=== PATIENT | male | born 1980 | race African-American/Black ===

== ENCOUNTER 2017-03-12 11:38 | Emergency (ER) | payer BC ==
[~2017-03-12] VITALS: Ht 172.7 cm; Wt 68.0 kg
[2017-03-12 12:00] VITALS: BP 159/92
[2017-03-12 12:25] LABS: BASOPHILS % (AUTO) 1.2 % (0.0-2.0); EOSINOPHILS % (AUTO) 1.1 % (0.0-3.0); LYMPHOCYTES % (AUTO) 46.3 % (20.0-45.0); MEAN CORPUSCULAR HEMOGLOBIN 28.9 PG (27.0-31.0); MEAN CORPUSCULAR HGB CONC 33.3 G/DL (32.0-36.0); MEAN CORPUSCULAR VOLUME 87 FL (80-99); MEAN PLATELET VOLUME 12.3 FL (6.5-10.1); MONOCYTES % (AUTO) 7.6 % (1.0-10.0); NEUTROPHILS % (AUTO) 43.8 % (45.0-75.0); PLATELET COUNT 150 K/UL (150-450); RED BLOOD COUNT 5.71 M/UL (4.70-6.10); RED CELL DISTRIBUTION WIDTH 11.9 % (11.6-14.8); WHITE BLOOD COUNT 6.9 K/UL (4.8-10.8)
[2017-03-12 12:26] LABS: APPEARANCE,URINE CLEAR; KETONES,URINE NEGATIVE (NEGATIVE); LEUKOCYTE ESTERASE ,URINE NEGATIVE (NEGATIVE); NITRITE,URINE NEGATIVE (NEGATIVE); PH,URINE 7 (4.5-8.0); PROTEIN,URINE NEGATIVE (NEGATIVE); UROBILINOGEN,URINE NORMAL MG/DL (0.0-1.0)
[2017-03-12 12:38] LABS: ALANINE AMINOTRANSFERASE 45 U/L (3-41); ALBUMIN/GLOBULIN RATIO 1.4 (1.0-2.7); ANION GAP 13 (5-15); ASPARTATE AMINO TRANSFERASE 25 U/L (5-40); CALCIUM 9.7 mg/dL (8.6-10.2); CARBON DIOXIDE 28 mEQ/L (20-30); CHLORIDE 99 mEQ/L (98-107); CREATININE 1.3 mg/dL (0.7-1.2); GLOMERULAR FILTRATION RATE > 60 mL/min (>60); HEMOLYSIS 5; LIPASE 30 U/L (< 60); POTASSIUM 3.8 mEQ/L (3.4-4.9); SODIUM 140 mEQ/L (135-145); TOTAL PROTEIN 8.2 g/dL (6.6-8.7)
[2017-03-12 12:51] LABS: BILIRUBIN,DIRECT 0.2 mg/dL (0.1-0.3)
[2017-03-12 13:59] VITALS: BP 123/99
--- NOTE | 2017-03-12 15:13 | Emergency Room Report ---
History of Present Illness General Chief Complaint: Abdominal Pain Source: Patient Present Illness HPI This patient complained of abdominal pain for the past 2 days. He also states has a history of severe constipation. He states he has not a bowel movement in the past 2 days. He denies nausea or vomiting. Denies fever chills. Denies dysuria or hematuria. He has no other complaints. Allergies: Coded Allergies: AMOXICILLIN (Verified Allergy, Unknown, 03/12/17) Uncoded Allergies: OKRA (Allergy, Unknown, 03/12/17) Patient History Past Medical History: none, see triage record, renal disease Social History: Denies: alcohol use, drug use, smoking Reviewed Nursing Documentation: PMH: Agreed, PSxH: Agreed Nursing Documentation-PMH Past Medical History: No Stated History Review of Systems All Other Systems: negative except mentioned in HPI Physical Exam Vital Signs Date Time Temp Pulse Resp B/P Pulse Ox O2 Delivery O2 Flow Rate FiO2 03/12/17 11:52 98.1 78 16 134/83 99 Room Air Sp02 EP Interpretation: reviewed, normal General Appearance: no apparent distress, alert, GCS 15, non-toxic Head: normocephalic, atraumatic Eyes: bilateral eye PERRL, bilateral eye normal inspection ENT: hearing grossly normal, normal pharynx, no angioedema, normal voice Neck: full range of motion, supple/symm/no masses Respiratory: chest non-tender, lungs clear, normal breath sounds, speaking full sentences Cardiovascular #1: regular rate, rhythm, no edema Gastrointestinal: normal bowel sounds, soft, non-distended, no guarding, no rebound, tenderness - TTP LLQ Rectal: deferred Musculoskeletal: back normal, gait/station normal, normal range of motion, non- tender Neurologic: alert, oriented x3, responsive, motor strength/tone normal, sensory intact, speech normal Psychiatric: judgement/insight normal, memory normal, mood/affect normal, no suicidal/homicidal ideation Skin: normal color, no rash, warm/dry, well hydrated Medical Decision Making Diagnostic Impression: Primary Impression: Constipation Additional Impression: Renal insufficiency, mild ER Course This patient presents with abdominal pain and constipation. He was tender to palpation a left lower quadrant, I did obtain a CT of the abdomen pulse to assess her diverticulitis. However, there is no acute findings. He was noted to have a left renal lesion of uncertain characterization in etiology. Possibly scarring. He also son have a creatinine of 1.3. When I discussed this with the patient, he states that he has had this before and actually 1.3 is good for him. He is aware of his kidney dysfunction. Regardless, places patient on a bowel regimen and he is instructed to followup closely with his primary care physician. I did not identify an emergency medical condition. Labs Test 03/12/17 12:13 03/12/17 12:17 Urine Color Pale yellow Urine Appearance Clear Urine pH 7 (4.5-8.0) Urine Specific [place] 1.010 (1.005-1.035) Urine Protein Negative (NEGATIVE) Urine Glucose (UA) Negative (NEGATIVE) Urine Ketones Negative (NEGATIVE) Urine Occult Blood Negative (NEGATIVE) Urine Nitrite Negative (NEGATIVE) Urine Bilirubin Negative (NEGATIVE) Urine Urobilinogen Normal MG/DL (0.0-1.0) Urine Leukocyte Esterase Negative (NEGATIVE) Urine Opiates Screen Negative (NEGATIVE) Urine Barbiturates Screen Negative (NEGATIVE) Phencyclidine (PCP) Screen Negative (NEGATIVE) Urine Amphetamines Screen Negative (NEGATIVE) Urine Benzodiazepines Screen Negative (NEGATIVE) Urine Cocaine Screen Negative (NEGATIVE) Urine Marijuana (THC) Screen Negative (NEGATIVE) White Blood Count 6.9 K/UL (4.8-10.8) Red Blood Count 5.71 M/UL (4.70-6.10) Hemoglobin 16.5 G/DL (14.2-18.0) Hematocrit 49.6 % (42.0-52.0) Mean Corpuscular Volume 87 FL (80-99) Mean Corpuscular Hemoglobin 28.9 PG (27.0-31.0) Mean Corpuscular Hemoglobin Concent 33.3 G/DL (32.0-36.0) Red Cell Distribution Width 11.9 % (11.6-14.8) Platelet Count 150 K/UL (150-450) Mean Platelet Volume 12.3 FL (6.5-10.1) Neutrophils (%) (Auto) 43.8 % (45.0-75.0) Lymphocytes (%) (Auto) 46.3 % (20.0-45.0) Monocytes (%) (Auto) 7.6 % (1.0-10.0) Eosinophils (%) (Auto) 1.1 % (0.0-3.0) Basophils (%) (Auto) 1.2 % (0.0-2.0) Sodium Level 140 mEQ/L (135-145) Potassium Level 3.8 mEQ/L (3.4-4.9) Chloride Level 99 mEQ/L (98-107) Carbon Dioxide Level 28 mEQ/L (20-30) Anion Gap 13 (5-15) Blood Urea Nitrogen 7 mg/dL (7-23) Creatinine 1.3 mg/dL (0.7-1.2) Estimat Glomerular Filtration Rate > 60 mL/min (>60) Glucose Level 94 mg/dL (74-106) Calcium Level 9.7 mg/dL (8.6-10.2) Total Bilirubin 1.2 mg/dL (0.0-1.2) Direct Bilirubin 0.2 mg/dL (0.1-0.3) Aspartate Amino Transf (AST/SGOT) 25 U/L (5-40) Alanine Aminotransferase (ALT/SGPT) 45 U/L (3-41) Alkaline Phosphatase 56 U/L (40-129) Total Protein 8.2 g/dL (6.6-8.7) Albumin 4.9 g/dL (3.5-5.2) Globulin 3.3 g/dL Albumin/Globulin Ratio 1.4 (1.0-2.7) Lipase 30 U/L (< 60) CT/MRI/US Diagnostic Results CT/MRI/US Diagnostic Results : Imaging Test Ordered: CT abd/pelvis Impression See official report. No acute findings. Left kidney with a difficult to characterize lesion that is possibly scarring from an old infection. Last Vital Signs Date Time Temp Pulse Resp B/P Pulse Ox O2 Delivery O2 Flow Rate FiO2 03/12/17 13:59 98.2 90 20 123/99 100 Room Air Status: improved Disposition: HOME, SELF-CARE Condition: Improved Referrals: NOT CHOSEN IGLESIA/,REFERRING (PCP) ANNEMARIE FORD D.O. March 12, 2017 15:13
[2017-03-12] MEDS ORDERED: FLEET ENEMA133 ML RECTAL (15:15)
[2017-03-12] MEDS ORDERED: COLACE100 MG ORAL (15:15)
[2017-03-12] MEDS ORDERED: MIRALAX17 G2 ORAL (15:15)
--- NOTE | 2017-03-12 15:15 | Diagnostic Imaging Report ---
Indication: Abdominal pain Technique: Continuous helical transaxial imaging of the abdomen and pelvis was obtained from the lung bases to the pubic symphysis during intravenous contrast administration. Coronal 2-D reformats were also obtained. Study obtained in a Siemens sensation [address] Total Dose length Product (DLP): [address] Dose Index Volume (CTDIvol): 13.9 mGy Comparison: None Findings: Lung bases are clear. The appendix is probably visualized partially and unremarkable as such. No secondary signs of appendicitis are identified. Liver, pancreas, spleen appear unremarkable. No free fluid or free air seen. Somewhat ill-defined 1-2 cm focus of low density noted in the lateral part of the left kidney (image 34 series 5). Considerations include a small infarct or possibly focus of bacterial nephritis. Please correlate clinically. There is a tiny cyst noted in the posterior lower pole the left kidney. The right kidney is unremarkable. There is no hydronephrosis. No renal stones are identified. There may be mild thickening of the bladder wall. Please correlate for cystitis. Impression: Somewhat ill-defined focus of low-attenuation in the lateral part of the left renal cortex, nonspecific. Would consider a small infarct or focus of the infection/bacterial nephritis. Please correlate clinically. Mild thickening of the urinary bladder wall. Correlate for cystitis. The CT scanner at [facility] is accredited by the [employer] and the scans are performed using dose optimization techniques as appropriate to a performed exam including Automatic Exposure control.
[2017-03-12 15:23] VITALS: BP 122/83
== END 2017-03-12 15:24 | disposition home or self-care (01) ==
LOC: EMR 12:53
DX: K59.00 Constipation, unspecified (principal); N28.9 Disorder of kidney and ureter, unspecified; R10.9 Unspecified abdominal pain; Z88.0 Allergy status to penicillin; Z91.018 Allergy to other foods
CPT/HCPCS: 36415; 74177; 80053; 80300; 81003; 82248; 83690; 85025; 96360; 99284; Q9967

== ENCOUNTER 2017-06-09 18:45 | Emergency (ER) | payer BC ==
[~2017-06-09] VITALS: Ht 172.7 cm; Wt 72.6 kg
[~2017-06-09 18:45] MED LIST: COLACE100 MG ORAL; FLEET ENEMA133 ML RECTAL; MIRALAX17 G2 ORAL
[2017-06-09] MEDS ORDERED: NKM (18:56)
[2017-06-09 19:03] VITALS: BP 152/89
[2017-06-09] MEDS ORDERED: COLACE100 MG ORAL (19:23)
[2017-06-09] MEDS ORDERED: MIRALAX17 G2 ORAL (19:23)
[2017-06-09 19:43] VITALS: BP 155/82
--- NOTE | 2017-06-10 14:17 | Emergency Room Report ---
History of Present Illness General Chief Complaint: Abdominal Pain Source: Patient Present Illness HPI 37-year-old male presents to ER for evaluation. Patient notes having lower abdominal pain. Patient states having this pain for several years now. Was seen here in March for similar presentation. Had labs and CT documented constipation. Patient was discharged on stool softeners. Patient is here today stating that he is aware he is constipated but wants to be evaluated for an ulcer. Patient was told in [place] many years ago he may have an ulcer. Patient denies any epigastric pain. Denies any pain with eating. Denies any chest pain or shortness of breath. No other aggravating or relieving factors. Denies any other associated symptoms Allergies: Coded Allergies: AMOXICILLIN (Verified Allergy, Unknown, 03/12/17) Uncoded Allergies: OKRA (Allergy, Unknown, 03/12/17) Patient History Past Medical History: none Past Surgical History: none Pertinent Family History: none Social History: Denies: alcohol use, drug use, smoking Immunizations: UTD Reviewed Nursing Documentation: PMH: Agreed, PSxH: Agreed Nursing Documentation-PMH Past Medical History: No Stated History Review of Systems All Other Systems: negative except mentioned in HPI Physical Exam Vital Signs Date Time Temp Pulse Resp B/P Pulse Ox O2 Delivery O2 Flow Rate FiO2 06/09/17 18:51 97.7 78 16 152/89 99 Room Air Sp02 EP Interpretation: reviewed, normal General Appearance: no apparent distress, alert, GCS 15, non-toxic Head: normocephalic, atraumatic Eyes: bilateral eye PERRL, bilateral eye normal inspection ENT: hearing grossly normal, normal pharynx, no angioedema, normal voice Neck: full range of motion, supple/symm/no masses Respiratory: chest non-tender, lungs clear, normal breath sounds, speaking full sentences Cardiovascular #1: regular rate, rhythm, no edema Cardiovascular #2: 2+ carotid (R), 2+ carotid (L), 2+ radial (R), 2+ radial (L) , 2+ dorsalis pedis (R), 2+ dorsalis pedis (L) Gastrointestinal: normal bowel sounds, non tender, soft, non-distended, no guarding, no rebound Rectal: deferred Genitourinary: normal inspection, no CVA tenderness Musculoskeletal: back normal, gait/station normal, normal range of motion, non- tender Neurologic: alert, oriented x3, responsive, motor strength/tone normal, sensory intact, speech normal Psychiatric: judgement/insight normal, memory normal, mood/affect normal, no suicidal/homicidal ideation Reflexes: 3+ bicep (R), 3+ bicep (L), 3+ tricep (R), 3+ tricep (L), 3+ knee (R) , 3+ knee (L) Skin: normal color, no rash, warm/dry, well hydrated Lymphatic: no adenopathy Medical Decision Making Diagnostic Impression: Primary Impression: Constipation Qualified Codes: K59.00 - Constipation, unspecified ER Course 37-year-old male presents ED complaining of lower abdominal pain. History of constipation. differential - SBO, constipation, diverticulitis Patient placed on stretcher. After initial history physical exam reveals a male in no acute distress. Abdominal exam is soft, nonfocal. No guarding or rebound. I reviewed EMR for the last visit in March. Lab was unremarkable. CT showed no acute process but showed significant fecal impaction Patient was discharged in stool softeners. When asked the patient why he believes he has an ulcer he points to his lower abdomen. I explained to the patient this is not consistent with ulcer. Ulcer pain is more epigastric, burning, worse with food. His pain is similar to his pain on his last visit in March which was due to constipation Patient is asking to have an EGD performed. I explained to patient this is not a emergency evaluation and can be performed as an outpatient. Patient needs to get a primary care doctor through his insurance and get referral to a ultrasound technician Patient states understanding of the process and states he will work to get a primary care physician through his insurance Diagnosis-constipation Stable and discharged to home with Colace, Miralax. Followup with PMD. Return to ED if symptoms recur or worsen Last Vital Signs Date Time Temp Pulse Resp B/P Pulse Ox O2 Delivery O2 Flow Rate FiO2 06/09/17 19:43 97.7 71 14 155/82 99 Room Air Status: improved Disposition: HOME, SELF-CARE Condition: Improved Scripts Docusate Sodium* (COLACE*) 100 Mg Capsule 100 MG ORAL THREE TIMES A DAY, #30 CAP Prov: WESTON HURTADO M.D. 06/09/17 Polyethylene Glycol 3350* (MIRALAX*) 17 Gm Powd.pack 17 GM ORAL DAILY, #30 PACKET Prov: WESTON HURTADO M.D. 06/09/17 Referrals: NOT CHOSEN [facility]/,REFERRING (PCP) MIKE MCDANIELS Patient Instructions: Constipation, Adult, [id number] WESTON HURTADO M.D. Jun 10, 2017 14:17
== END 2017-06-09 19:43 | disposition home or self-care (01) ==
LOC: EMR 19:30
DX: K59.00 Constipation, unspecified (principal); Z88.0 Allergy status to penicillin; Z91.018 Allergy to other foods
CPT/HCPCS: 99284

== ENCOUNTER 2019-10-23 16:56 | Emergency (ER) | payer BC ==
[~2019-10-23] VITALS: Ht 175.3 cm; Wt 72.6 kg
[~2019-10-23 16:56] MED LIST changes: +NKM
[2019-10-23 17:00] VITALS: BP 145/89
--- NOTE | 2019-10-23 17:00 | NUR ---
ED Nurse Note: Patient came into ER with a c/o no sleep in 3 days. Patient aaox4, on room air with stable vital signs.
--- NOTE | 2019-10-23 17:25 | Emergency Room Report ---
History of Present Illness General Chief Complaint: General Complaint Source: Patient Present Illness HPI 39-year-old male with no significant past medical history here complaining of increased anxiety and lack of sleep in the past 3 nights. Patient reports that he has experienced this once before where his anxiety increased however has not properly been treated for anxiety. Patient does admit that in the past he only took lorazepam for short time however has not been taking that since. Patient reports that he does fall asleep however keeps waking up denies any bad dreams, flashbacks, SI, HI, or recent stressors in life. Patient reports that he believes that he may having an sleep disorder. Patient does have a primary care provider to follow-up with. Denies any chest pain, shortness of breath, palpitation, headache and dizziness at this time. Reports that he often stays up late and has monitor exposure. Denies any drug use, tobacco smoke, alcohol intake. Allergies: Coded Allergies: AMOXICILLIN (Verified Allergy, Unknown, 03/12/17) Uncoded Allergies: OKRA (Allergy, Unknown, 03/12/17) Patient History Past Medical History: see triage record Past Surgical History: unable to obtain Pertinent Family History: none Immunizations: UTD Reviewed Nursing Documentation: PMH: Agreed; PSxH: Agreed Nursing Documentation-PMH Past Medical History: No History, Except For Hx Cardiac Problems: No - High cholesterol Hx Hypertension: Yes Hx Pacemaker: No Hx Asthma: No Hx COPD: No Hx Diabetes: No Hx Cancer: No Hx Gastrointestinal Problems: No Hx Dialysis: No History Of Psychiatric Problem: No Hx Neurological Problems: No Hx Cerebrovascular Accident: No Hx Seizures: No Review of Systems All Other Systems: negative except mentioned in HPI Physical Exam Vital Signs Date Time Temp Pulse Resp B/P (MAP) Pulse Ox O2 Delivery O2 Flow Rate FiO2 10/23/19 16:59 97.9 81 18 145/89 (107) 99 Room Air Sp02 EP Interpretation: reviewed, normal General Appearance: no apparent distress, alert, GCS 15, non-toxic Head: normocephalic, atraumatic Eyes: bilateral eye normal inspection, bilateral eye PERRL ENT: hearing grossly normal, normal pharynx, no angioedema, normal voice Neck: full range of motion, supple, supple/symm/no masses Respiratory: chest non-tender, lungs clear, normal breath sounds, no rhonchi, speaking full sentences Cardiovascular #1: regular rate, rhythm, no edema, no murmur Gastrointestinal: normal bowel sounds, non tender, soft, non-distended, no guarding, no rebound Rectal: deferred Genitourinary: no CVA tenderness Musculoskeletal: back normal, normal range of motion, calf tenderness, gait/ station normal, non-tender Neurologic: alert, motor strength/tone normal, leather fitter III-XII nml as tested, oriented Psychiatric: judgement/insight normal, memory normal, mood/affect normal, no suicidal/homicidal ideation Skin: no rash Lymphatic: no adenopathy Medical Decision Making PA Attestation All my diagnosis and treatment plans were reviewed ad discussed with my supervising physician Dr. Davsi Diagnostic Impression: Primary Impression: Insomnia ER Course 39-year-old male with no significant past medical history here complaining of increased anxiety and lack of sleep in the past 3 nights. Patient reports that he has experienced this once before where his anxiety increased however has not properly been treated for anxiety. Patient does admit that in the past he only took lorazepam for short time however has not been taking that since. Patient reports that he does fall asleep however keeps waking up denies any bad dreams, flashbacks, SI, HI, or recent stressors in life. Patient reports that he believes that he may having an sleep disorder. Patient does have a primary care provider to follow-up with. Denies any chest pain, shortness of breath, palpitation, headache and dizziness at this time. Reports that he often stays up late and has monitor exposure. Denies any drug use, tobacco smoke, alcohol intake. Ddx considered but are not limited to: generalized anxiety disorder, panic attack, depression with psychotic feature, bipolar disorder, drug overdose , insomnia Vital signs: are WNL, pt. is afebrile H&PE are most consistent with: Insomnia most likely secondary to anxiety ORDERS: Hydroxyzine ED INTERVENTIONS: None required at this time. DISCHARGE: At this time pt. is stable for d/c to home. Will provide printed patient care instructions, and any necessary prescriptions. Care plan and follow up instructions have been discussed with the patient prior to discharge. Advised patient to follow-up with primary care provider and establish with therapist also avoid screen time 2 hours prior to sleeping and avoid eating and drinking any liquids 2 hours prior to sleeping. Patient agrees with the above treatment. Last Vital Signs Date Time Temp Pulse Resp B/P (MAP) Pulse Ox O2 Delivery O2 Flow Rate FiO2 10/23/19 16:59 97.9 81 18 145/89 (107) 99 Room Air Disposition: HOME, SELF-CARE Condition: Stable Scripts Hydroxyzine Hcl (HYDROXYZINE HCL) 50 Mg Tablet 50 MG PO BEDTIME for 5 Days, #5 TAB Prov: Leticia Nino 10/23/19 Patient Instructions: Insomnia Additional Instructions: Follow-up with your primary care provider for referral to a therapist in regards to your anxiety causing to your insomnia. Avoid watching TV or any monitor x2 hours prior to sleeping, avoid eating or drinking any fluids prior to sleeping around 2 hours prior to going to bed. If worsening symptoms return to the emergency room. Leticia Nino Oct 23, 2019 17:25
[2019-10-23] MEDS ORDERED: HYDROXYZINE HCL50 M1 PO (17:27)
[2019-10-23 17:34] VITALS: BP 145/89
--- NOTE | 2019-10-23 17:34 | NUR ---
ER DISCHARGE NOTE: Patient is cleared to be discharged per ERMD, pt is aox4, on room air, with stable vital signs. pt was given dc and prescription instructions, pt was able to verbalize understanding, pt id band removed without complications. pt is able to ambulate with steady gait. pt took all belongings.
== END 2019-10-23 17:34 | disposition home or self-care (01) ==
LOC: EMR 17:30
DX: G47.00 Insomnia, unspecified (principal); F41.9 Anxiety disorder, unspecified; Z88.0 Allergy status to penicillin; I10 Essential (primary) hypertension; E78.00 Pure hypercholesterolemia, unspecified
CPT/HCPCS: 99282